=== PATIENT | female | born 1975 | race Caucasian/White ===

== ENCOUNTER 2016-03-28 08:45 | Emergency (ER) | payer OTHER ==
[~2016-03-28] VITALS: Ht 157.5 cm; Wt 47.4 kg
[~2016-03-28 08:45] MED LIST: CETI10TA10 PO; CLON1TAB3 PO; CLX20 PO; FLUT0.15; LAMO150T32 PO; SPIR25TA PO
[2016-03-28 08:49] VITALS: TEMP 36.6; Ht 157.5 cm; Wt 47.4 kg
[2016-03-28] MEDS ORDERED: B-CO1CAP17 PO (09:08)
[2016-03-28] MEDS ORDERED: CITA40TA12 PO (09:08)
[2016-03-28] MEDS ORDERED: SODIUM CHLORIDE 0.9% 500ML 500 ML IV STA (09:43)
[2016-03-28] MEDS ORDERED: GI COCKTAIL PO ONE (09:45)
[2016-03-28] MEDS ORDERED: ALUMINUM/MAGNESIUM SUSP 30 ML UDC ONE (09:56)
[2016-03-28] MEDS ORDERED: LIDOCAINE HCL 2% VISC SOLN 20 ML UDC ONE (09:56)
--- NOTE | 2016-03-28 10:44 | DIAGNOSTIC IMAGING REPORT ---
PA CHEST WITH ABDOMINAL SERIES CLINICAL HISTORY: Generalized abdominal pain. FINDINGS: A PA chest radiograph is obtained. No prior studies are available for comparison at the time of dictation. The cardiomediastinal silhouette is unremarkable. The lungs and pleural spaces are clear. No pneumothorax is seen. The bony thorax is grossly intact. Supine and erect abdominal radiographs are obtained. No prior studies are available for comparison at the time of dictation. There is a nonobstructed abdominal bowel gas pattern. No evidence of intraperitoneal free air is seen. There are no abnormal abdominal calcifications. The lumbosacral spine and bony pelvis appear intact. IMPRESSION: 1. No active disease in the chest. 2. Unremarkable abdominal radiographs. Electronically signed by: Eduardo Moser M.D. 03/28/2016 10:43 AM Dictated Date/Time: 03/28/2016 10:42 AM
[2016-03-28 10:45] LABS: BASO % 0.6 %; BASO ABS # 0.02 K/uL (0-0.2); COMPLETE YES; EOS % 1.6 %; HEMATOCRIT 40.6 % (37-47); LYMPH % 42.5 %; LYMPH ABS # 1.31 K/uL (1.2-3.4); MEAN CELL VOLUME 91.4 fL (80-100); MEAN CORPUSCULAR HEMOGLOBIN 30.9 pg (25-34); MEAN CORPUSCULAR HGB CONC 33.7 g/dl (32-36); MEAN PLATELET VOLUME 10.2 fL (7.4-10.4); MONO % 5.8 %; NEUT % 49.5 %; PLATELET COUNT 233 K/uL (130-400); RED BLOOD COUNT 4.44 M/uL (4.2-5.4); WHITE BLOOD COUNT 3.08 K/uL (4.8-10.8)
[2016-03-28 10:53] LABS: BUN/CREATININE RATIO 8.1 (10-20); CREATININE 0.75 mg/dl (0.60-1.20); MAGNESIUM 2.2 mg/dl (1.8-2.4); POTASSIUM 4.3 mmol/L (3.5-5.1)
[2016-03-28 10:56] LABS: URINE APPEARANCE CLOUDY (CLEAR); URINE BILIRUBIN NEG (NEG); URINE COLOR YELLOW; URINE EPITHELIAL CELL AUTO >30 /lpf (0-5); URINE NITRITE NEG (NEG); URINE PH >= 9.0 (4.5-7.5); URINE SPECIFIC GRAVITY 1.017 (1.000-1.030); UROBILINOGEN NEG (NEG); ZZUR CULT IF INDIC CLEAN CATCH YES
[2016-03-28 10:56] LABS: ALB/GLOB RATIO 1.3 (0.9-2)
[2016-03-28 10:57] LABS: MANUAL MICROSCOPIC REQUIRED? NO; REVIEW REQ? NO
[2016-03-28] MEDS ORDERED: OMEP40CA41 PO (12:12)
--- NOTE | 2016-03-28 12:13 | EMERGENCY ROOM VISIT NOTE ---
History First contact with patient: 08:57 Chief Complaint: ABDOMINAL PAIN Stated Complaint: STOMACH ACHE Nursing Triage Summary: Pt states, "I have a stomache. I changed my eating habits to go no carbs and I think yesterday I had too much air in my stomach and not enough water. I had terrible pain in the left side of my abdomen. I took gas-ex. I've been eating like a healthy person for about 10 days. I have constipation problems because of meds I take. I just want to make sure my stomach lining is ok and I didn't do anything permanent. I keep burping and it's not heartburn because I've had that before." History of Present Illness The patient is a 40 year old female who presents to the Emergency Department by private vehicle for evaluation of her epigastric abdominal discomfort. She reports that her symptoms started yesterday. She had a burning sensation with associated terrible pain in her upper LEFT-sided abdomen. She reports that the symptoms persisted throughout the day yesterday and returned today which prompted her visit to the emergency department. She denies any fevers or chills. She reports no nausea or vomiting. She describes the pain as burning and occasionally sharp in nature. She reports no pain with deep inspiration, chest pain, palpitations, or shortness of breath. She rates her current discomfort as a 4/10. She denies any previous abdominal surgeries. The patient admits to traveling to [place] approximately 2 weeks ago. She admits to drinking alcohol heavily during this trip. Upon returning home, she has not eaten much at all in an attempt to lose weight for an upcoming formal event. She continues to drink coffee, however. The patient reports no history of gastritis otherwise. Review of Systems A complete 10-point Review of Systems was discussed with the patient, with pertinent positives and negatives listed in the History of Present Illness. All remaining Review of Systems questions can be considered negative unless otherwise specified. Social History Smoking Status: Never Smoker Smokeless Tobacco Use: No Alcohol Use: occasionally Drug Use: none Marital Status: Occupation Status: employed Current/Historical Medications Scheduled Citalopram Hydrobromide (Celexa), 40 MG PO DAILY Clonazepam (Klonopin), 1 MG PO HS Fluticasone Propionate (Nasal) (Flonase Allergy Relief), 2 SPRAYS NA QAM Lamotrigine (Lamictal), 150 MG PO HS Omeprazole (Prilosec), 40 MG PO DAILY Vitamin B Cmplx/Vitc/Folic Ac (Nephrocaps), 1 CAP PO DAILY Allergies Coded Allergies: Quinolones (Unverified Allergy, Severe, THROAT SWELLING SHUT, HIVES., 09/11) Cat Dander (Unverified Allergy, Intermediate, UNK, 03/28/16) Dog Dander (Unverified Allergy, Intermediate, UNK, 03/28/16) Ciprofloxacin (Verified Allergy, Mild, "HIVES, THROAT SWELLING", 09/12/15) Latex1 -Allergic Contact Dermititis (Verified Allergy, Unknown, RASH, 09/11) Sulfa Drugs (Unverified Allergy, Unknown, RASH HIVES DIARRHEA, 09/12/15) Nitrates, Organic (Unverified Adverse Reaction, Unknown, YEAST INFECTIONS / NEEDS DIFLUCAN WITH IT, 09/12/15) Nitrofurantoin (Unverified Adverse Reaction, Unknown, YEAST INFECTIONS/ NEEDS DIFLUCAN WITH IT, 09/12/15) Physical Exam Vital Signs Date Time Temp Pulse Resp B/P Pulse Ox O2 Delivery O2 Flow Rate FiO2 03/28/16 12:39 63 16 107/64 98 03/28/16 11:40 63 16 107/64 98 Room Air 03/28/16 10:02 59 18 111/69 99 Room Air 03/28/16 08:49 36.6 76 20 107/70 98 Room Air Pain Rating (0-10): 4 Physical Exam VITAL SIGNS - Vital signs and nursing notes were reviewed. GENERAL - 40-year-old female appearing her stated age who is in no acute distress. Communicates well with provider and answers questions appropriately. LUNGS - Chest wall symmetric without accessory muscle use, intercostals retractions, or central cyanosis. Normal vesicular breath sounds CTA B/L. No wheezes, rales, or rhonchi appreciated. CARDIAC - RRR with S1/S2. No murmur, rubs, or gallops appreciated. ABDOMEN - Abdominal contour flat and without pulsations or visible masses. BS normoactive all four quadrants. Minimal tenderness to palpation appreciated in the epigastrium. No guarding. No Rebound Tenderness. Negative Rovsing's. Negative Jimenez's. No palpable masses, hepatosplenomegaly, or ascites noted. PSYCH - A&Ox3 and cooperates fully with examiner. Pt is very pleasant and interacts well with examiner. Medical Decision & Procedures Laboratory Results 03/28/16 09:50 Red Blood Count 4.44, Mean Corpuscular Volume 91.4, Mean Corpuscular Hemoglobin 30.9, Mean Corpuscular Hemoglobin Concent 33.7, Mean Platelet Volume 10.2, Neutrophils (%) (Auto) 49.5, Lymphocytes (%) (Auto) 42.5, Monocytes (%) (Auto) 5.8, Eosinophils (%) (Auto) 1.6, Basophils (%) (Auto) 0.6, Neutrophils # (Auto) 1.52, Lymphocytes # (Auto) 1.31, Monocytes # (Auto) 0.18, Eosinophils # (Auto) 0.05, Basophils # (Auto) 0.02 03/28/16 09:50 Test 03/28/16 09:50 03/28/16 10:40 White Blood Count 3.08 K/uL (4.8-10.8) Red Blood Count 4.44 M/uL (4.2-5.4) Hemoglobin 13.7 g/dL (12.0-16.0) Hematocrit 40.6 % (37-47) Mean Corpuscular Volume 91.4 fL (80-100) Mean Corpuscular Hemoglobin 30.9 pg (25-34) Mean Corpuscular Hemoglobin Concent 33.7 g/dl (32-36) Platelet Count 233 K/uL (130-400) Mean Platelet Volume 10.2 fL (7.4-10.4) Neutrophils (%) (Auto) 49.5 % Lymphocytes (%) (Auto) 42.5 % Monocytes (%) (Auto) 5.8 % Eosinophils (%) (Auto) 1.6 % Basophils (%) (Auto) 0.6 % Neutrophils # (Auto) 1.52 K/uL (1.4-6.5) Lymphocytes # (Auto) 1.31 K/uL (1.2-3.4) Monocytes # (Auto) 0.18 K/uL (0.11-0.59) Eosinophils # (Auto) 0.05 K/uL (0-0.5) Basophils # (Auto) 0.02 K/uL (0-0.2) RDW Standard Deviation 41.4 fL (36.4-46.3) RDW Coefficient of Variation 12.3 % (11.5-14.5) Immature Granulocyte % (Auto) 0.0 % Immature Granulocyte # (Auto) 0.00 K/uL (0.00-0.02) Anion Gap 7.0 mmol/L (3-11) Est Creatinine Clear Calc Drug Dose 75.4 ml/min Estimated GFR () 116.4 Estimated GFR (Non- 100.4 BUN/Creatinine Ratio 8.1 (10-20) Calcium Level 9.0 mg/dl (8.5-10.1) Magnesium Level 2.2 mg/dl (1.8-2.4) Total Bilirubin 0.4 mg/dl (0.2-1) Aspartate Amino Transf (AST/SGOT) 17 U/L (15-37) Alanine Aminotransferase (ALT/SGPT) 28 U/L (12-78) Alkaline Phosphatase 48 U/L (45-117) Total Protein 7.0 gm/dl (6.4-8.2) Albumin 4.0 gm/dl (3.4-5.0) Globulin 3.0 gm/dl (2.5-4.0) Albumin/Globulin Ratio 1.3 (0.9-2) Lipase 120 U/L (73-393) Urine Color YELLOW Urine Appearance CLOUDY (CLEAR) Urine pH >= 9.0 (4.5-7.5) Urine Specific Cory 1.017 (1.000-1.030) Urine Protein NEG (NEG) Urine Glucose (UA) NEG (NEG) Urine Ketones NEG (NEG) Urine Occult Blood NEG (NEG) Urine Nitrite NEG (NEG) Urine Bilirubin NEG (NEG) Urine Urobilinogen NEG (NEG) Urine Leukocyte Esterase NEG (NEG) Urine WBC (Auto) 1-5 /hpf (0-5) Urine RBC (Auto) 0-4 /hpf (0-4) Urine Hyaline Casts (Auto) 0 /lpf (0-5) Urine Epithelial Cells (Auto) >30 /lpf (0-5) Urine Bacteria (Auto) 1+ (NEG) Urine Test NEG (NEG) Date/Time Source Procedure Growth Status 03/28/16 10:40 Urine , Clean Catch Urine Culture - Final THREE TYPES OF ORGANSIMS PRESENT, ALL... Complete Medications Administered Medications (Trade) Dose Ordered Sig/Vamsi Route Start Time Stop Time Status Last Admin Dose Admin Sodium Chloride (Nss 500ml) 500 ml @ 999 mls/hr Q31M STAT IV 03/28/16 09:43 03/28/16 10:13 DC 03/28/16 10:02 999 MLS/HR Miscellaneous Medication (Gi Cocktail) 24 ml NOW ONCE PO 03/28/16 09:45 03/28/16 09:46 DC 03/28/16 09:58 24 ML ED Course Patient was seen and evaluated by myself. Labs were drawn, saline lock in place. The patient was hydrated with a 500 mL normal saline bolus. Patient was provided a GI cocktail for comfort. Laboratory results demonstrate no acute leukocytosis, worrisome anemia, or bandemia. The patient has no significant electrolyte abnormalities. On review the patient, she reports feeling much better after the GI cocktail. The patient was educated on today's findings. She was educated on gastritis and associated worrisome symptoms for return visit to the emergency department. Patient was placed in a short course of the PPI. She was educated on worrisome symptoms for return visit to the emergency department. Patient discharged home afebrile and in good condition. Medical Decision Given the patient's presentation and stated complaints, I did elect to perform the above-mentioned workup. The patient presents today with epigastric abdominal discomfort. She has no fevers or chills. She has no leukocytosis. Her exam is otherwise unremarkable. Liver enzymes are within normal limits. Lipase is not elevated. I do not feel that imaging studies are necessary in this situation. The patient had complete resolve symptoms of GI cocktail. I suspect that the patient has likely developed a gastritis after heavy drinking and now having decreased by mouth intake with associated heavy coffee intake. Regardless, the patient feels much pat at this time. She will replace a short course of a PPI and utilize [id number] medications for breakthrough symptoms. She'll follow-up with her primary care provider from today's visit or return in the setting of any changing or worsening symptoms. Patient discharged home afebrile and in good condition. IMPRESSION: Lower Abdominal PaiIn the evaluation and treatment of this patient, the following differential diagnoses were considered: Appendicitis, Diverticulitis, Diverticulosis, Colitis, Ischemic Colitis, Inflammatory Bowel Disease, Irritable Bowel Disease, Ovarian Torsion, Ectopic, Kidney Stone, Pyelonephritis, Hydronephrosis, Cholecystitis, Ascending Cholangitis, Choledocholithiasis, GERD. Impression Primary Impression: Gastritis Departure Information Dispostion Home / Self-Care Condition GOOD Prescriptions Omeprazole (PRILOSEC) 40 Mg Cap 40 MG PO DAILY for 14 Days, #14 CAP Prov: Gaurav Champion PA-C 03/28/16 Referrals No Doctor, Assigned (PCP) Patient Instructions ED Gastritis, [facility] Additional Instructions You have been treated in the Emergency Department for your suspected Gastritis. Laboratory results and Imaging studies have ruled out any other emergent or surgical gastrointestinal issues. You should take Prilosec as prescribed. This is a drug that will help with any possible indigestion that might be contributing to your pain/discomfort. You should take this medicine EVERY day for the best results. This medicine is not intended to be used for immediate relief of symptoms, but rather to reduce the risk of recurrence of symptoms. You can consider using Maalox/TUMS for relief of any indigestion that you might be experiencing. This drug is fast acting and can be used for immediate relief of your indigestion symptoms. You should eat a bland diet for the next few days. Some suggested bland dietary foods: Bananas, Rice, Applesauce, [place], or Boiled Chicken. These foods are easy to digest and help you to recover at a faster rate. All meals for the next few days should be small to mechanic helper in bowel rest. For pain control, you can use the following [id number] medicines (if >12 yo): - Regular strength (325mg/tab) Tylenol (acetaminophen) 2 tabs every 4-6 hours as needed. Do not exceed 12 tablets in a 24 hour period. Avoid taking more than 4 grams (4000 mg) of Tylenol per day. This includes any other sources of acetaminophen you may take on a regular basis. - Regular strength (200 mg/tab) Advil (ibuprofen) 1-2 tabs every 4-6 hours as needed. Do not exceed a dose of 3200 mg per day. You should schedule a follow-up appointment with your Primary Care Provider in 2 -3 days for further evaluation from today's Emergency Department visit. Your Primary Care Provider should be involved in the addition of any new medications. Your Primary Care Provider may also refer you to a Director Of Enterprise Strategy, a doctor who specializes in the digestive system. Return to the Emergency Department if your current symptoms worsen despite treatment course outlined above, or if you develop any of the following symptoms : worsening abdominal pain, associated chest or back pain, worsening nausea/ vomiting, dizziness, shortness of breath, blood in your vomit, or fainting. Problem Qualifiers Primary Impression: Gastritis Gastritis type: other gastritis Chronicity: unspecified Gastritis bleeding : without bleeding Qualified Codes: K29.60 - Other gastritis without bleeding
[2016-03-28 12:39] VITALS: BP 107/64; PULSE 63; O2SAT 98
== END 2016-03-28 12:42 | disposition home or self-care (01) ==
LOC: C.EDB 08:47
DX: K29.60 Other gastritis without bleeding (principal)

== ENCOUNTER → 2016-04-09 | Outpatient (CLI) | payer OTHER ==
[~2016-04-09] MED LIST changes: +B-CO1CAP17 PO; -CETI10TA10 PO; +CITA40TA12 PO; -CLX20 PO; +OMEP40CA41 PO; -SPIR25TA PO
== END | disposition home or self-care (01) ==
LOC: C.PATHSPEC 14:24
PROVIDERS: ATTEND Dermatology
DX: L82.1 Other seborrheic keratosis (principal)

== ENCOUNTER → 2016-07-16 | Outpatient (CLI) | payer OTHER ==
[~2016-07-16] MED LIST changes: -OMEP40CA41 PO
== END | disposition home or self-care (01) ==
LOC: C.PAPS 14:34
PROVIDERS: ATTEND Physician Assistant
DX: Z01.419 Encounter for gynecological examination (general) (routine) without abnormal findings (principal)

== ENCOUNTER → 2016-08-16 | Outpatient (CLI) | payer OTHER ==
[2016-08-16 11:54] LABS: URINE APPEARANCE CLEAR (CLEAR); URINE BILIRUBIN NEG (NEG); URINE COLOR YELLOW; URINE NITRITE NEG (NEG); URINE SPECIFIC GRAVITY 1.011 (1.000-1.030); UROBILINOGEN NEG (NEG)
[2016-08-16 12:02] LABS: MANUAL MICROSCOPIC REQUIRED? NO; REVIEW REQ? NO
[2016-08-19 07:27] LABS: CHLAMYDIA TRACH RNA*** NOT DETECTED (NOT DETECTED); GC (NEIS GONORRHOEAE)RNA** NOT DETECTED (NOT DETECTED)
== END | disposition home or self-care (01) ==
LOC: C.LABSPEC 10:47
PROVIDERS: ATTEND Obstetrics & Gynecology
DX: R39.9 Unspecified symptoms and signs involving the genitourinary system (principal); N89.8 Other specified noninflammatory disorders of vagina

== ENCOUNTER → 2016-08-22 | Outpatient (CLI) | payer OTHER ==
--- NOTE | 2016-08-23 12:32 | MAMMOGRAPHY REPORT ---
BILATERAL DIGITAL SCREENING MAMMOGRAM TOMOSYNTHESIS WITH CAD: 08/22/2016 CLINICAL HISTORY: Routine screening. Baseline exam. TECHNIQUE: Breast tomosynthesis in addition to standard 2D mammography was performed. Current study was also evaluated with a Computer Aided Detection (CAD) system. COMPARISON: No prior exams were available for comparison. BREAST COMPOSITION: The tissue of both breasts is extremely dense, which lowers the sensitivity of m ammography. FINDINGS: No suspicious masses, calcifications, or areas of architectural distortion are noted in ei ther breast. IMPRESSION: ACR BI-RADS CATEGORY 1: NEGATIVE There is no mammographic evidence of malignancy. A 1 year screening mammogram is recommended. The pa tient will receive written notification of the results. Approximately 10% of breast cancers are not detected with mammography. A negative mammographic report should not delay biopsy if a clinically suggestive mass is present. Chary Hawley M.D. ah/:08/22/2016 15:13:00 Ginner: Sakina WILHELM(Felix)(Jen)([id number]), [facility] letter sent: Normal 1/2 BI-RADS Code: ACR BI-RADS Category 1: Negative
== END | disposition home or self-care (01) ==
LOC: C.MAMM 14:24
PROVIDERS: ATTEND Obstetrics & Gynecology
DX: Z12.31 Encounter for screening mammogram for malignant neoplasm of breast (principal)

== ENCOUNTER → 2016-09-18 | Outpatient (CLI) | payer OTHER | END | disposition home or self-care (01) | LOC: C.PATHSPEC 16:48 | PROVIDERS: ATTEND Dermatology | DX: D23.5 Other benign neoplasm of skin of trunk (principal) ==

== ENCOUNTER → 2017-05-30 | Outpatient (CLI) | payer OTHER ==
[~2017-05-30] MED LIST changes: +LAMO150T PO; -LAMO150T32 PO
== END | disposition home or self-care (01) ==
LOC: C.LABSPEC 11:28
PROVIDERS: ATTEND Physician Assistant
DX: N89.8 Other specified noninflammatory disorders of vagina (principal); R30.0 Dysuria